=== PATIENT | female | born 1940 | race Caucasian/White ===

== ENCOUNTER 2021-03-28 15:59 | Emergency (ER) | payer MEDICARE, BC, SELFPAY ==
--- NOTE | ~2021-03-28 | CT_ITS ---
EXAMINATION: CT HEAD AND CT CERVICAL SPINE WITHOUT CONTRAST. CLINICAL INFORMATION: Fall. Pain. COMPARISON: None TECHNIQUE: 5 mm thin axial and reformatted 2 mm thin sagittal and coronal images of brain were obtained. Subsequently axial 3 mm thin and reformatted 2 mm thin images of cervical spine were obtained. DLP 1050 mGy. FINDINGS: Brain: There is no acute intra-axial, extra-axial bleed, masses or midline shift. There is no acute edema in evolution. There is no edema. The lateral ventricles are symmetrical in size and configuration without enlargement. Bone windows reveal no calvarial abnormality. There is no scalp soft tissue modality. Is mild mucoperiosteal thickening right anterior ethmoid air cells. Rest the paranasal sinuses and mastoid air cells are well-aerated. There is a small right nasal bone deformity likely fracture with minimal soft tissue swelling Cervical spine: There is normal cervical lordosis. The vertebral heights and alignment is normal. There is T1 superior endplate compression deformity likely new. There is mild loss of C5-C6, C6-C7 disc heights with ventral spondylosis at C4-C5, C5-C6 and C6-C7 disc levels. The craniovertebral junction and the C1-C2 alignment is normal. There is mild narrowing of bilateral C5-C6 and C6-C7 neural foramina from uncovertebral hypertrophic changes. No acute fracture, dislocation or lytic process seen. There is a calcified left thyroid nodule. The lung apices are clear. The airway is widely patent. The prevertebral and paravertebral soft tissues are normal. CT/CT cervical spine wo con IMPRESSION: No acute intracranial process seen. No acute fracture, dislocation or subluxation seen in the cervical spine. There are degenerative disc changes cervical spine C5-C6 to C6-C7 disc level. Suspect acute T1 superior endplate compression fracture with approximately 5% loss of vertebral height. Correlate with clinical exam.
[2021-03-28 16:33] VITALS: BP 170/87; PULSE 75; TEMP 36.6; O2SAT 96; BMI 27.6
--- NOTE | 2021-03-28 17:58 | ED_ITS ---
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 Reports trip and fall, denies symptoms prior to fall including CP/SOB, headache, lightheadedness/dizziness. Denies LOC. Denies taking anticoagulation. Tetanus up-to-date. Denies vision change/loss, neck/back pain, nausea/vomiting, numbness/tingling, weakness complaint: fall Onset (ago): hour(s) Related Data Allergies Allergy/AdvReac Type Severity Reaction Status Date / Time No Known Allergies Allergy Verified 03/28/21 16:44 Review of Systems Verdana 4l Review of Systems: Verdana 4d Verdana 4d Constitutional: No Fever, No Chills, No Fatigue, No Malaise ENT/Mouth: No Ear Pain, No Nasal Congestion, No sore throat,No Swallowing Difficulty Eyes: No Eye Pain, No Swelling, No Redness, No Vision Changes Cardiovascular: No Chest Pain, NoNo SOB, No Orthopnea, No Edema, No Palpitations Respiratory: No Cough, No Sputum, No Dyspnea Gastrointestinal: No Nausea, No Vomiting, No Diarrhea, No Constipation, No Abdominal pain Genitourinary: No Dysuria, No Urinary Frequency, No Flank Pain, No Urinary Flow Changes Musculoskeletal: No joint pain, No Myalgias, No Joint Swelling Skin: + Skin Lesions, No rash Neuro: No Weakness, No Numbness, No Paresthesias, No Loss of Consciousness, No Dizziness, + Headache Yes all other systems are reviewed and are negative Neurologic: Denies Abnormal speech present [facility] Past Medical History Attestation statement: The following information was validated with the patient. Social History Social History Advance Directives: No Advance Directives Information Provided: No Physical Exam Verdana 4l Vital Signs: Verdana 4d Verdana 4d Vital Signs: Verdana 4d Verdana 4Bd Last Vital Signs Verdana 4d Legal Services Manager New 4d Legal Services Manager New 4d Temp 97.9 F 03/28/21 18:45 Legal Services Manager New 4d Pulse 85 03/28/21 18:45 Legal Services Manager New 4d Resp 18 03/28/21 18:45 BP 148/68 H 03/28/21 18:45 Pulse Ox 97 03/28/21 18:45 BMI result Body Mass Index 27.6 Const: General: cooperative, alert and awake Orientation/consciousness: patient oriented x3 Limitations: no limitations HENMT: Other: + 2 cm deep laceration noted to forehead. + abrasions to nose with mild nasal bridge swelling, no deformity. No palpable orbital step-off. EOMs intact without entrapment, +mild periorbital ecchymosis No active epistaxis. No septal hematoma. + 1.5 cm laceration noted to upper lip. Not through and through. No intraoral involvement, no oral lacerations. Teeth intact. Head: Yes normal to inspection, Yes abrasion and Yes laceration Ears: hearing grossly normal bilaterally General nose exam: Normal external nose present Face and sinus: Yes normal facial exam Mouth: no drooling Teeth and gingiva: dentition normal Throat: Yes tonsils normal and Yes uvula midline Eyes: General: appearance normal, both eyes and all related structures Pupils: Equal, round and reactive pupils present EOM: EOMs intact bilaterally Neck: Other: C-collar in place. No midline cervical spine tenderness Neck: Yes normal visual inspection and Yes no meningeal signs Resp: Effort & Inspection: normal respiratory effort and no respiratory distress A uscultation: clear to auscultation bilaterally Cardio: Rate: regular rate Heart sounds: S1 normal heart sound present and S2 normal heart sound present GI: Inspection: Yes normal to inspection Palpation (GI): Soft to palpation, nontender, no guarding and not rigid Back/Spine/Pelvis: Thoracic/Lumbar Spine: thoracic and lumbar spine normal to inspection Neuro: General: patient oriented x3, tone normal, moves all extremities, no meningeal signs, no focal motor deficits and CN's II-XI intact bilaterally Cranial nerves: Yes CN's II-XII intact bilaterally, Yes Equal, round and reactive pupils present and Yes Bilaterally intact EOM present Cognition (Neuro): normal cognition Speech: No Abnormal speech present Gait exam (Neuro): Normal gait present Motor exam (neuro): 5/5 motor strength present throughout Extrem: General: Yes normal to inspection Course Course Course Narrative: CT head/brain wo con/CT cervical spine wo con IMPRESSION: No acute intracranial process seen. ? No acute fracture, dislocation or subluxation seen in the cervical spine. There are degenerative disc changes cervical spine C5-C6 to C6-C7 disc level. ? Suspect acute T1 superior endplate compression fracture with approximately 5% loss of vertebral height. Correlate with clinical exam. >> patient reports T1 compression fracture is old. Discussed worrisome signs and symptoms and strict return precautions with patient in needed follow-up in 5 days for suture removal, she verbalized understanding & feels safe for discharge home Procedures Laceration Laceration 1: Site: lip Size (cm): 1.5 Description: linear Depth: simple, single layer Local Anesthetic: lidocaine 1% Amount of anesthesia used (mL): 1.5 Pre-repair: wound explored Skin layer closed with: nylon Size (cm): 6-0 Number of sutures: 3 Technique: simple, interrupted Laceration 2: Site: face Size (cm): 2 Description: irregular Depth: simple, single layer Local Anesthetic: lidocaine 1% Amount of anesthesia used (mL): 2 Pre-repair: wound explored and irrigated extensively Skin layer closed with: nylon Size (cm): 5-0 and 6-0 Number of sutures: 5 Technique: simple, interrupted MDM - Fall MDM Narrative Medical decision making narrative: 80-year-old female with past medical history of hypertension presenting to the ED complaining of forehead and upper lip laceration s/p mechanical fall 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 On exam vital signs stable, and 80, physical exam as above. Will obtain head/C-spine CT to rule out ICH/fractures and repair wounds. Plan: Head/C-spine CT, repair laceration Medical Records Attestation: I reviewed the patient's medical records. Lab Data Attestation: I reviewed the patient's lab results. Discharge Plan Discharge Clinical Impression: Face lacerations, Fall, Head injury Patient Disposition: Home, Self-Care Instructions: Laceration (ED) Additional Instructions: A CT scan of her head and neck showed a T1 compression fracture which you reports is old, otherwise shows degenerative disc changes of C5-C6 and C6-C7, no intracranial process or acute fractures Your face and lip were closed today, you need to return for suture removal in 5 days. Apply bacitracin and or Neosporin at home. Avoid direct sunlight as this will cause scarring. You may apply anti scar cream like Moderna after sutures are taken out Area begins look infected, is red, there is drainage or you have fever please return to the emergency department Referrals: Lata Miller PA [Emergency Midlevel Provider] - 5 days (For suture removal) Interventions: ED Discharge Assessment Last Done: 03/28/21 19:50 Discharge Date/Time: 03/28/21 19:52
[2021-03-28 18:45] VITALS: BP 148/68; PULSE 85; RESP 18; TEMP 36.6; O2SAT 97
[2021-03-28] MEDS: Lidocaine HCl 1 % MPF 5 ML VIAL SUBCUT ×2 (19:10)
== END 2021-03-28 19:52 | disposition home or self-care (01) ==
PROVIDERS: Emergency Provider Emergency Medicine Emergency Medical Services; PCP Internal Medicine Infectious Disease
DX: S01.511A Laceration without foreign body of lip, initial encounter (principal); S01.81XA Laceration without foreign body of other part of head, initial encounter; G44.309 Post-traumatic headache, unspecified, not intractable; W18.30XA Fall on same level, unspecified, initial encounter; Y93.9 Activity, unspecified; Y92.9 Unspecified place or not applicable; Y99.9 Unspecified external cause status; Z79.899 Other long term (current) drug therapy
CPT/HCPCS: 12013; 70450; 72125; 99284

== ENCOUNTER 2021-04-02 17:14 | Emergency (ER) | payer MEDICARE, BC, SELFPAY ==
[2021-04-02 17:17] VITALS: BP 164/91; PULSE 85; RESP 16; TEMP 36.7; O2SAT 98; BMI 27.8
--- NOTE | 2021-04-02 18:04 | ED_ITS ---
HPI - General Adult General Chief complaint: Recheck/Abnormal Lab/Rx Stated complaint: suture removal Time Seen by Provider: 04/02/21 17:47 Source: patient Mode of arrival: ambulatory History of Present Illness HPI narrative: 80-year-old female with past medical history of hypertension, forehead & lip laceration s/p mechanical fall on 03/28/21 seen in our ED presenting to ED for suture removal. denies fever, drainage, dehiscence Related Data Allergies Allergy/AdvReac Type Severity Reaction Status Date / Time No Known Allergies Allergy Verified 03/28/21 16:44 Review of Systems Review of Systems: Constitutional: No Fever, No Chills ENT/Mouth: No Ear Pain, No sore throat, No Rhinorrhea Cardiovascular: No Chest Pain, No SOB Respiratory: No Cough, No Wheezing Gastrointestinal: No Nausea, No Vomiting, No Diarrhea, No Constipation, No Abdominal pain Genitourinary: No Dysuria, No Hematuria,No Urgency, No Flank Pain Musculoskeletal: No joint pain, No Myalgias, No Joint Swelling Skin: +healing lacerations, No rash Neuro: No Weakness, No Numbness, No Paresthesias Yes all other systems are reviewed and are negative [facility] Past Medical History Attestation statement: The following information was validated with the patient. Social History Social History Advance Directives: No Advance Directives Information Provided: No Physical Exam ED Vital Signs: Vital Signs - 24 hr 04/02/21 17:17 Temperature 98.0 F Pulse Rate 85 Respiratory Rate 16 Blood Pressure 164/91 H Pulse Oximetry 98 BMI result Body Mass Index 27.8 Const General: cooperative, healthy appearing, comfortable and no acute distress Orientation/consciousness: patient oriented x3 Limitations: no limitations HENMT Other: Healing ecchymosis to periorbital areas. Healing abrasions to nose. Healing laceration to forehead with 5 sutures intact. Appropriately healing laceration to upper lip with 3 sutures intact. Head: Yes normal to inspection Ears: hearing grossly normal bilaterally General nose exam: Normal external nose present Face and sinus: Yes normal facial exam Eyes General: appearance normal, both eyes and all related structures EOM: EOMs intact bilaterally Neck Neck: Yes normal visual inspection and Yes no meningeal signs Resp Effort & Inspection: normal respiratory effort and no respiratory distress Cardio Rate: regular rate Heart sounds: S1 normal heart sound present and S2 normal heart sound present Skin Rashes: no rashes Wounds: no wounds Neuro General: patient oriented x3 and no meningeal signs Gait exam (Neuro): Normal gait present Extrem General: Yes normal to inspection Procedures Procedure Narrative Procedure Narrative: Suture removal: 5 sutures removed from forehead laceration. No complications 3 sutures removed from upper lip. No complications No active bleeding, no dehiscence Medical Decision Making MDM Narrative Medical decision making narrative: 80-year-old female with past medical history of hypertension, forehead & lip laceration s/p mechanical fall on 03/28/21 seen in our ED presenting to ED for suture removal. On exam vital signs stable, NAD, sutures removed from forehead and upper lip. Appropriate healing. Discussed worrisome signs and symptoms and strict return precautions. Patient verbalized acting as a for discharge home Medical Records Medical records reviewed: Yes I reviewed the patient's medical records. Discharge Plan Discharge Clinical Impression: Encounter for removal of sutures Patient Disposition: Home, Self-Care Instructions: Stitches Removal (ED) Additional Instructions: Your sutures were removed today in the ED. Keep dry and clean. Continue to apply bacitracin or Neosporin for the next few days. Then you may apply anti scar cream like Mederna Do not scrub, pat dry, rub gently If area begins to look infected, is red, there is drainage or you have fever please return to the ED follow-up with her doctor as needed Referrals: Mera Rivas MD [Primary Care Provider] - 3 days (as needed)
== END 2021-04-02 18:12 | disposition home or self-care (01) ==
PROVIDERS: Emergency Provider Internal Medicine; PCP Internal Medicine
DX: Z48.02 Encounter for removal of sutures (principal); S01.81XD Laceration without foreign body of other part of head, subsequent encounter; S01.511D Laceration without foreign body of lip, subsequent encounter; W19.XXXD Unspecified fall, subsequent encounter
CPT/HCPCS: 99283

== ENCOUNTER 2021-11-23 12:11 | Outpatient (REF) | payer MEDICARE, BC, SELFPAY ==
[2021-11-23 14:18] LABS: Alanine Aminotransferase 14 U/L (0-31); Albumin Level 4.3 g/dL (3.5-5.0); Alkaline Phosphatase 120 U/L (39-117); Anion Gap 16 (12-20); Aspartate Amino Transferase 30 U/L (5-31); Bilirubin Total 2.7 mg/dL (0.0-1.0); Blood Urea Nitrogen 11 mg/dL (9-16); Calcium 9.4 mg/dL (8.4-10.2); Carbon Dioxide 25 mmol/L (22-29); Chloride 103 mmol/L (96-108); Estimated Glomerular Filt Rate > 60; Glucose Random 95 mg/dL (60-115); Potassium 3.9 mmol/L (3.3-5.1); Sodium 140 mmol/L (135-145); Total Protein 7.3 g/dL (6.5-8.0)
[2021-11-23 14:25] LABS: Basophils Percent Auto 0.8 % (0-2); Eosinophils Absolute Auto 0.2 X10*3/uL (0.0-0.4); Eosinophils Percent Auto 6.1 % (0-4); Imm Gran Abs Auto 0.02 X10*3/uL (0.00-0.03); Imm Gran Pct Auto 0.5 % (0.0-0.4); Lymphocytes Absolute Auto 0.9 X10*3/uL (1.2-4.9); Lymphocytes Percent Auto 22.8 % (20-40); Mean Platelet Volume 10.2 fL (9.4-12.3); Monocytes Absolute Auto 0.4 X10*3/uL (0.1-1.2); Monocytes Percent Auto 9.4 % (2-11); Neutrophils Absolute Auto 2.4 x10*3/uL (2.0-8.3); Neutrophils Percent Auto 60.4 % (45-73); Platelet Count 229 X10*3/uL (160-400); SCAN SMEAR FLAG 1; White Blood Count 3.9 X10*3/uL (4.8-10.8)
[2021-11-23 16:46] LABS: Red Blood Count 2.55 X10*6/uL (4.20-5.50)
[2021-11-23 16:47] LABS: Hematocrit 26.5 % (37.0-47.0)
[2021-11-23 16:48] LABS: Mean Corpuscular Volume 103.9 fL (80.0-98.0)
[2021-11-23 16:49] LABS: Mean Corpuscular Hemoglobin 35.3 pg (27.0-33.0)
[2021-11-23 16:50] LABS: MANUAL DIFF FLAG NO
[2021-11-27 15:51] LABS: Vitamin D 25-OH, D2 <4 ng/mL; Vitamin D 25-OH, D3 33 ng/mL; Vitamin D 25-OH, Total 33 ng/mL (30-100)
== END 2021-11-23 12:12 | disposition home or self-care (01) ==
LOC: HO.10HDL 12:11
PROVIDERS: Visit Provider Internal Medicine Rheumatology
DX: M81.0 Age-related osteoporosis without current pathological fracture (principal); K21.9 Gastro-esophageal reflux disease without esophagitis; D64.9 Anemia, unspecified; Z79.899 Other long term (current) drug therapy; Z87.81 Personal history of (healed) traumatic fracture
CPT/HCPCS: 36415; 80053; 82306; 85025; 99202